=== PATIENT | female | born 1960 | race Caucasian/White ===

== ENCOUNTER → 2024-06-04 11:15 | Outpatient (REF) | payer OTHER, SELFPAY | LOC: HWRAD 11:15 | PROVIDERS: ATTENDING PHYSICIAN Internal Medicine Hematology & Oncology; FAMILY PHYSICIAN Family Medicine | DX: C78.7 Secondary malignant neoplasm of liver and intrahepatic bile duct (principal); C49.A3 Gastrointestinal stromal tumor of small intestine | CPT/HCPCS: 74177; Q9967 ==

== ENCOUNTER → 2024-12-21 13:36 | Outpatient (REF) | payer OTHER, SELFPAY | LOC: RAD 13:36 | PROVIDERS: ATTENDING PHYSICIAN Internal Medicine Hematology & Oncology; FAMILY PHYSICIAN Family Medicine | DX: C49.A3 Gastrointestinal stromal tumor of small intestine (principal); C78.7 Secondary malignant neoplasm of liver and intrahepatic bile duct; G89.3 Neoplasm related pain (acute) (chronic); D64.9 Anemia, unspecified; B02.9 Zoster without complications; K64.9 Unspecified hemorrhoids; E87.6 Hypokalemia; R30.0 Dysuria | CPT/HCPCS: 71260; 74177; Q9967 ==

== ENCOUNTER → 2025-06-11 10:58 | Outpatient (REF) | payer OTHER, SELFPAY | LOC: RAD 10:58 | PROVIDERS: ATTENDING PHYSICIAN Internal Medicine Hematology & Oncology; FAMILY PHYSICIAN Family Medicine | DX: C49.A3 Gastrointestinal stromal tumor of small intestine (principal); C78.7 Secondary malignant neoplasm of liver and intrahepatic bile duct; G89.3 Neoplasm related pain (acute) (chronic); D64.9 Anemia, unspecified; B02.9 Zoster without complications; K64.9 Unspecified hemorrhoids; E87.6 Hypokalemia; R30.0 Dysuria | CPT/HCPCS: 71260; 74177; Q9967 ==

== ENCOUNTER → 2025-10-01 08:31 | Outpatient (REF) | payer OTHER, MEDICARE, SELFPAY | LOC: RAD 08:31 | PROVIDERS: ATTENDING PHYSICIAN Internal Medicine Hematology & Oncology; FAMILY PHYSICIAN Family Medicine; REFERRING PHYSICIAN Surgery | DX: C49.3 Malignant neoplasm of connective and soft tissue of thorax (principal); C78.7 Secondary malignant neoplasm of liver and intrahepatic bile duct; G89.3 Neoplasm related pain (acute) (chronic); D64.9 Anemia, unspecified; E87.6 Hypokalemia; R30.0 Dysuria | CPT/HCPCS: 71260; 74177; Q9967 ==